=== PATIENT | male | born 1975 | race American Indian/Alaskan Native ===

== ENCOUNTER 2016-06-17 23:55 | Emergency (ER) | payer SELFPAY ==
[2016-06-18] MEDS ORDERED: TYLENOL PO ONE (03:03)
[2016-06-18] MEDS ORDERED: TORADOL IM ONE (05:33)
[2016-06-18] MEDS ORDERED: NORCO 5/325 PO ONE (05:33)
--- NOTE | 2016-06-18 05:44 | Emergency Department Report ---
HPI - General Chief Complaint: Wound/Laceration Time Seen by Provider: 06/18/16 05:32 - HPI HPI: 40-year-old male presents today with a laceration to his left hand. Patient states that he got cut by a glass photo frame at 2300 hrs. yesterday. Denies numbness, weakness, paresthesias. He describes his pain as 10 out of 10 constant, sharp pain. Positive for bleeding at the time of injury, controlled at this time. Tried Tylenol with minimal pain relief. Denies fever, chills, nausea, vomiting, chest pain, shortness of breath, abdominal pain. ED Past Medical Hx - Past Medical History Previous Medical History?: No - Surgical History Past Surgical History?: No - Social History Smoking Status: Current Every Day Smoker Substance Use Type: Alcohol - Medications Home Medications: Home Medications Medication Instructions Recorded Confirmed Last Taken Type Naproxen [Naprosyn] 500 mg PO BID #30 tablet 06/18/16 Unknown Rx ED Review of Systems ROS: Stated complaint: RT HAND LAC Other details as noted in HPI Constitutional: denies: chills, fever, malaise Eyes: denies: eye pain ENT: denies: ear pain, throat pain, congestion Respiratory: denies: cough, shortness of breath, wheezing Cardiovascular: denies: chest pain, palpitations Endocrine: no symptoms reported Gastrointestinal: denies: abdominal pain, nausea, vomiting Neurological: denies: headache, weakness, numbness, paresthesias Physical Exam - Physical Exam Vital Signs: Vital Signs 06/18/16 06/18/16 00:14 02:58 Temperature 98.1 F 97.7 F Pulse Rate 100 H 89 Respiratory 18 18 Rate Blood Pressure 113/79 139/110 Blood Pressure 113/79 [Left] O2 Sat by Pulse 100 100 Oximetry Physical Exam: GENERAL: The patient is well-developed and well-nourished. Patient is in NAD. HEAD: Normocephalic. Atraumatic. CHEST/LUNGS: Clear to auscultation throughout. HEART/CARDIOVASCULAR: Regular rate and rhythm. No murmurs, rubs or gallops. ABDOMEN: Abdomen is soft, nontender. Bowel sounds normoactive. No guarding or rebound tenderness. LEFT HAND: 3 cm laceration noted over the dorsal aspect of left palm. No active bleeding noted. Full wrist and digit range of motion. Normal sensation. 2 point discrimination intact. Peripheral pulses intact. Capillary refill less than 2 seconds. NEURO: Alert and oriented x 3. Normal gait. ED Course Vital Signs 06/18/16 06/18/16 00:14 02:58 Temperature 98.1 F 97.7 F Pulse Rate 100 H 89 Respiratory 18 18 Rate Blood Pressure 113/79 139/110 Blood Pressure 113/79 [Left] O2 Sat by Pulse 100 100 Oximetry - Laceration /Wound Repair Left Hand Wound Location: upper extremity Wound Length (cm): 3 Wound's Depth, Shape: linear Wound Explored: no foreign body removed Irrigated w/ Saline (ccs): 500 Betadine Prep?: Yes Anesthesia: Lidocaine w/ Epi Volume Anesthetic (ccs): 3 Wound Debrided: minimal Wound Repaired With: sutures Suture Size/Type: 5:0, proline Number of Sutures: 6 Layer Closure?: No Progress: Patient tolerated the procedure well. Wound care instructions were provided. ED Medical Decision Making - Lab Data Vital Signs 06/18/16 06/18/16 06/18/16 00:14 02:58 04:05 Temperature 98.1 F 97.7 F Pulse Rate 100 H 89 Respiratory 18 18 20 Rate Blood Pressure 113/79 139/110 Blood Pressure 113/79 [Left] O2 Sat by Pulse 100 100 Oximetry 06/18/16 06:03 Temperature Pulse Rate Respiratory 20 Rate Blood Pressure Blood Pressure [Left] O2 Sat by Pulse Oximetry - Radiology Data Radiology results: report reviewed Left hand x-ray: No fracture or dislocation. Normal alignment, joint space, soft tissue, bony mineralization. No foreign bodies noted. - Medical Decision Making 40-year-old male presents today with a laceration to his left hand. His x-rays revealed no fracture or dislocation and no foreign bodies. His tetanus status was updated today. His wound was copiously irrigated and closed using 6-0 nylon sutures. Patient tolerated the procedure well. Wound care instructions were provided. He is recommended to return to the emergency department or primary care provider to have the sutures removed in 8-10 days. Patient is in no acute distress at this time. He will be discharged home and is encouraged to follow up with a primary care provider. He will be sent home on naproxen and is encouraged to return to the emergency room for any worsening symptoms. Critical care attestation.: If time is entered above; I have spent that time in minutes in the direct care of this critically ill patient, excluding procedure time. ED Disposition Clinical Impression: Laceration of hand Qualifiers: Encounter type: initial encounter Laterality: left Qualified Code(s): S61.412A - Laceration without foreign body of left hand, initial encounter Disposition: DISCHARGED TO HOME OR SELFCARE Is pt being admited?: No Does the pt Need Aspirin: No Condition: Stable Instructions: Laceration (ED), Suture Care (ED) Additional Instructions: Return to the emergency department to have the sutures removed in 8-10 days. Follow-up with Primary care provider. Return to the emergency department if symptoms worsen. Prescriptions: Naproxen [Naprosyn] 500 mg PO BID #30 tablet Referrals: PRIMARY CARE, [Primary Care Provider] - 3-5 Days [facility] [Outside] - 3-5 Days Forms: Work/School Release Form(ED) Time of Disposition: 06:58
--- NOTE | 2016-06-18 06:06 | XRay Report ---
FINAL REPORT PROCEDURE: XR HAND 3 LT TECHNIQUE: LEFT hand radiographs, AP, lateral, and oblique views. CPT 15683-MD HISTORY: laceration - r/o FB (glass) COMPARISON: No prior studies are available for comparison. FINDINGS: Fracture (s) and/or Dislocation(s): None . Alignment: Normal . Joint space(s): Normal . Soft tissues: Normal . Bone mineralization: Normal . Foreign bodies: None . IMPRESSION: Normal Examination .
[2016-06-18] MEDS ORDERED: MARCAINE-EPI 0.5%-1:200,000 INFILTRATI ONE (06:12)
[2016-06-18] MEDS ORDERED: NACL 0.9% IR ONE (06:12)
[2016-06-18] MEDS ORDERED: TRIPLE ANTIBIOTIC TP ONE (06:12)
[2016-06-18] MEDS ORDERED: BOOSTRIX IM ONE (06:12)
[2016-06-18 07:14] VITALS: BP 122/67
== END 2016-06-18 07:15 | disposition home or self-care (01) ==
LOC: ED 23:55
DX: S61.412A Laceration without foreign body of left hand, initial encounter (principal); W45.8XXA Other foreign body or object entering through skin, initial encounter; F17.200 Nicotine dependence, unspecified, uncomplicated; Y93.9 Activity, unspecified; Y92.9 Unspecified place or not applicable; Y99.9 Unspecified external cause status
CPT/HCPCS: 12002; 73130; 90471; 90715; 96372; 99283; J1885; A6250